=== PATIENT | male | born 1995 | race African-American/Black ===

== ENCOUNTER 2018-05-04 23:58 | Emergency (ER) | payer OTHER ==
[~2018-05-04] VITALS: Ht 175.3 cm; Wt 68.0 kg
[~2018-05-04 23:58] MED LIST: AMOXICILLIN500 M1 PO; MAGIC MOUTHWASH PO; ZOFRAN ODT4 MG PO
[2018-05-05 00:35] LABS: HEMATOCRIT 46.2 % (42.0-52.0); HEMOGLOBIN 15.6 gm/dL (14.0-18.0); MCHC 33.8 g/dL (28.0-37.0); MCV 94.7 fL (80.0-100.0); MPV 9.6 fl. (7.2-11.1); NUCLEATED RBCS 0 /100WBC; PLATELET COUNT* 226 thou/uL (150-400); RBC 4.88 mil/uL (4.50-6.00); RDW-CV 13.1 % (10.5-14.5); WBC 14.2 thou/uL (4.0-11.0)
[2018-05-05 00:48] LABS: CREATININE 0.9 mg/dL (0.6-1.3); POTASSIUM 4.1 mmol/L (3.5-5.1)
[2018-05-05 00:52] LABS: ALBUMIN 4.1 g/dL (3.4-5.0); TOTAL BILIRUBIN 0.2 mg/dL (<0.1-1.0); TOTAL PROTEIN 7.4 g/dL (6.4-8.2)
[2018-05-05] MEDS ORDERED: ZOFRAN4 MG PO (00:55)
[2018-05-05 01:10] LABS: URINE BILIRUBIN NEGATIVE (Negative); URINE BLOOD NEGATIVE (Negative); URINE CLARITY SL CLOUDY; URINE COLOR YELLOW; URINE GLUCOSE-RANDOM NEGATIVE (Negative); URINE KETONES NEGATIVE (Negative); URINE LEUKOCYTES-REFLEX NEGATIVE (Negative); URINE NITRITE-REFLEX NEGATIVE (Negative); URINE PROTEIN TRACE (Negative); URINE UROBILINOGEN 0.2 E.U./dl (0.2-1.0)
[2018-05-05 01:44] VITALS: BP 122/78
[2018-05-05 02:12] LABS: ABSOLUTE LYMPHOCYTES 1.1 thou/uL (0.8-5.3); ABSOLUTE MONOCYTES 0.4 thou/uL (0.0-1.2); ABSOLUTE NEUTROPHILS 12.6 thou/uL (1.6-8.1); PLATELET ESTIMATE ADEQUATE
== END 2018-05-05 01:47 | disposition still patient (30) ==
LOC: M.ERS 23:58
PROVIDERS: Nurse Practitioner Family
DX: R11.2 Nausea with vomiting, unspecified (principal); R19.7 Diarrhea, unspecified; R10.33 Periumbilical pain

== ENCOUNTER 2018-05-11 18:54 | Emergency (ER) | payer OTHER ==
[~2018-05-11] VITALS: Ht 175.3 cm; Wt 68.0 kg
[~2018-05-11 18:54] MED LIST changes: +ZOFRAN4 MG PO
[2018-05-11] MEDS ORDERED: ACETAMINOPHEN-1 EAC1 PO (19:51)
[2018-05-11 20:24] VITALS: BP 148/77
== END 2018-05-11 20:26 | disposition home or self-care (01) ==
LOC: M.ERS 18:54
DX: S82.492A Other fracture of shaft of left fibula, initial encounter for closed fracture (principal); W10.8XXA Fall (on) (from) other stairs and steps, initial encounter; Y93.89 Activity, other specified; Y92.89 Other specified places as the place of occurrence of the external cause; Y99.8 Other external cause status